=== PATIENT | female | born 2005 | race Caucasian/White ===

== ENCOUNTER → 2024-06-25 10:11 | Outpatient (BNVA) | payer OTHER, SELFPAY | PROVIDERS: Visit Provider Registered Nurse | DX: S80.01XA Contusion of right knee, initial encounter (principal); W18.30XA Fall on same level, unspecified, initial encounter | CPT/HCPCS: 73562; 99203 ==

== ENCOUNTER → 2024-06-28 10:34 | Outpatient (BNVA) | payer OTHER, SELFPAY | PROVIDERS: Visit Provider Registered Nurse | DX: S80.01XA Contusion of right knee, initial encounter (principal); W18.30XA Fall on same level, unspecified, initial encounter | CPT/HCPCS: 99213 ==

== ENCOUNTER 2024-07-05 10:58 | Outpatient (RCR) | payer OTHER, SELFPAY ==
--- NOTE | 2024-07-05 11:39 | MHC.PT.EP ---
[facility] [place] Office [place] Office [place] Office [address] Patrice Aparicio [address] [phone] F: [phone] F: [phone] F: [phone] F: [phone] Physical Therapy Plan of Care Date of Evaluation: 07/05/24 Date of Surgery: n/a Diagnosis: R knee contusion Assessment: Patient is a 19 year old female presenting to PT with complaints of pain in her R knee. Pt reports onset of pain began 06/27/2024 due to falling on her knee at work. She presents today with impairments in pain, ROM, knee strength, hip strength. 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 Pt expresses penitentiary goal of reducing pain, and is motivated to work towards this in PT. Clinical presentation today is most consistent with signs and sx associated with R knee pain and pt will benefit from skilled PT 2 week x 4 weeks to address the following problems and impairments noted upon evaluation: {PT PROBLEM LIST:32982}. These problems limit the patient with the following functional activities: stair negotiation, work. The prescribed treatment plan of care is medically necessary. Co-morbidities of none were identified and taken into considerations of plan of care. Pt was educated on HEP, role of PT, prognosis, POC. Frequency and Duration: The patient will be seen 2 x week x 4 weeks Short Term Goals: Pt will demonstrate pain free ROM on R in available range in 2 weeks. Pt will demonstrate improved hip MMT strength by 1/3 grade in 2 weeks. Pt will demonstrate improved knee MMT strength to 5/5 in 2 weeks. Alf Goals: Pt will demonstrate ability to descend stairs with min to no pain in 4 weeks for improved access to her home and school. Pt will demonstrate ability to work a full day with min to no pain or limitation in 4 weeks for return to work at her [employer]. Treatment Plan: Modalities to reduce pain, spasms and effusion. Manual therapy to restore motion and function. Therapeutic exercise to improve strength and flexibility. Neuromuscular re-education for posture and balance. Therapeutic activities to return to functional activities of daily living. Electronically signed by: Safia Hawkins, PT, DPT, ATC Please sign and return to therapist. Thank you for your referral.
--- NOTE | 2024-07-19 13:17 | MHC.PT.DC ---
[facility] [place] Office [place] Office [place] Office [address] Aparicio 140 [facility] [phone] F: [phone] F: [phone] F: [phone] F: [phone] Physical Therapy Discharge Report Diagnosis: R knee contusion Date of Surgery: n/a Date of Evaluation: 07/05/24 Date of Discharge: 07/19/24 Treatments to Date: 1 Cancellations to Date: 0 No Shows to Date: 2 Discharge Status: Visit Non-compliance Discharge Summary: Pt has failed to comply with [facility] [place] and no showed 2 visits. Therefore to be d/c. Electronically signed by: Safia Hawkins, PT, DPT, ATC Please sign and return to therapist. Thank you for your referral.
== END 2024-07-19 13:17 | disposition home or self-care (01) ==
LOC: HO.PTCHIC 10:58
PROVIDERS: Visit Provider Registered Nurse
DX: S80.01XD Contusion of right knee, subsequent encounter (principal)
CPT/HCPCS: 97110; 97161